=== PATIENT | female | born 1995 | race Caucasian/White ===

== ENCOUNTER 2018-01-30 06:00 | Inpatient (IN) | payer OTHER ==
[2018-01-30] MEDS ORDERED: CARBOPROST TROMETHAMINE 250 MCG/ML 1 ML AMP IM PRN (06:22)
[2018-01-30] MEDS ORDERED: TERBUTALINE 1 MG/ML VIAL SQ PRN (06:22)
[2018-01-30] MEDS ORDERED: OXYTOCIN 10 UNIT/ML 1 ML VIAL IM PRN (06:22)
[2018-01-30] MEDS ORDERED: LIDOCAINE 1% (PF) 10 MG/ML (30 ML SDV) SQ PRN (06:22)
[2018-01-30] MEDS ORDERED: METHYLERGONOVINE 0.2 MG/ML 1 ML AMP IM PRN (06:22)
[2018-01-30] MEDS ORDERED: OXYTOCIN 20 UNITS/1000 ML NS 1,000 ML IV SCH ×2 (06:30→11:45)
[2018-01-30] MEDS: LACTATED RINGERS 1,000 ML IV SCH ×2 (06:32→09:23)
[2018-01-30 06:43] LABS: Basophils # (A) 0.1 k/uL (0-0.2); Basophils % (A) 0 %; Eosinophils # (A) 0.2 k/uL (0-0.7); Eosinophils % (A) 1 %; HCT 35.1 % (34.0-46.0); HGB 12.3 gm/dL (11.4-16.0); Lymphocytes # (A) 3.3 k/uL (1.0-4.8); Lymphocytes % (A) 19 %; MCH 29.4 pg (25.0-35.0); MCHC 35.2 g/dL (31.0-37.0); MCV 83.5 fL (80.0-100.0); Mean Platelet Volume 7.8; Monocytes # (A) 0.7 k/uL (0-1.0); Monocytes % (A) 4 %; Neutrophils # (A) 12.7 k/uL (1.3-7.7); Neutrophils % (A) 74 %; Platelet Count 311 k/uL (150-450); WBC 17.1 k/uL (3.8-10.6)
[2018-01-30 07:48] VITALS: BMI 30.6
[2018-01-30] MEDS ORDERED: BUPIVACAINE (PF) 0.25% 30 ML VIAL ONE (09:07)
[2018-01-30] MEDS ORDERED: fentaNYL (PF) 50 MCG/ML 5 ML AMP ONE (09:07)
[2018-01-30] MEDS ORDERED: SODIUM CHLORIDE 0.9% 100 ML BAG ONE (09:07)
[2018-01-30] MEDS ORDERED: LANOLIN CREAM 5 GM TUBE TOPICAL PRN (11:45)
[2018-01-30] MEDS ORDERED: diphenhydrAMINE 50 MG/ML 1 ML VIAL IVP PRN ×2 (11:45)
[2018-01-30] MEDS ORDERED: diphenhydrAMINE 50 MG CAP PO PRN (11:45)
[2018-01-30] MEDS ORDERED: ACETAMINOPHEN TAB 325 MG TAB PO PRN (11:45)
[2018-01-30] MEDS ORDERED: SIMETHICONE 80 MG CHEWABLE PO PRN (11:45)
[2018-01-30] MEDS ORDERED: BENZOCAINE/MENTHOL SPRAY 1 GM/SPRAY AEROSOL TOPICAL PRN (11:45)
[2018-01-30] MEDS ORDERED: WITCH HAZEL 1 EACH MED..PAD TOPICAL PRN (11:45)
[2018-01-30] MEDS ORDERED: diphenhydrAMINE 25 MG CAP PO PRN (11:45)
[2018-01-30] MEDS ORDERED: HYDROCORTISONE 2.5% RECTAL CREAM 30 GM TUBE RECTAL PRN (11:45)
[2018-01-30] MEDS ORDERED: ZOLPIDEM 5 MG TAB PO PRN (11:45)
[2018-01-30] MEDS: IBUPROFEN 600 MG TAB PO PRN ×2 (12:56→23:29)
--- NOTE | 2018-01-30 17:35 | P.HPOB ---
History of Present Illness H&P Date: 01/30/18 Chief Complaint: Intrauterine at term: Active labor This year is a 23-year-old at 39 weeks gestation who originally arrives for induction. However on exam she was dilated 7 cm nilson every 2-3 minutes and it appears spontaneous rupture membranes did occur. Her course otherwise this point has been unremarkable and she was feeling well at this time. Her pertinent labs did include A+ blood type Rh antibody was negative, rubella immune, hepatitis B surface antigen as well as RPR and GBS were all negative. On physical exam vital signs are stable and afebrile. Heart regular, lungs clear, extremities without pain. Osteopathic exam is unremarkable. heart tones in the 1 teens to 120s and are reactive. Assessment intrauterine at term. Plan expect spontaneous vaginal delivery and plans for epidural for analgesia. May need Pitocin for augmentation. Past Medical History Past Medical History: No Reported History History of Any Multi-Drug Resistant Organisms: None Reported Past Surgical History: No Surgical Hx Reported Past Anesthesia/Blood Transfusion Reactions: No Reported Reaction Past Psychological History: No Psychological Hx Reported Smoking Status: Current every day smoker Past Alcohol Use History: None Reported Past Drug Use History: None Reported - Past Family History Mother Family Medical History: No Reported History Medications and Allergies Home Medications Medication Instructions Recorded Confirmed Type RX: Pnv,Calcium 72/Iron/Folic Acid 1 tab PO DAILY 01/30/18 01/30/18 History [ Plus Tablet] Allergies Allergy/AdvReac Type Severity Reaction Status Date / Time No Known Allergies Allergy Verified 01/30/18 06:22 Exam Osteopathic Statement: *. No significant issues noted on an osteopathic structural exam other than those noted in the History and Physical/Consult. - Vital Signs Vital signs: Vital Signs Temp Pulse Resp BP 01/30/18 15:54 98.0 F 75 16 119/63 01/30/18 13:28 98.2 F 85 16 101/56 01/30/18 12:58 98.3 F 84 16 111/58 01/30/18 12:28 98.2 F 82 16 112/56 01/30/18 12:13 91 16 118/53 01/30/18 11:58 94 16 121/71 01/30/18 11:43 83 16 117/69 01/30/18 11:28 98.0 F 93 16 116/57 01/30/18 07:42 97.2 F L 109 H 16 125/74 Intake and Output 01/30/18 01/30/18 01/30/18 06:59 14:59 22:59 Intake Total 16.7 Balance 16.7 Intake: Intake, IV Titration 16.7 Amount Oxytocin 20 Units/1000 ml 16.7 Ns 1,000 ml @ 1 MILLIUNIT/MIN 3 mls/hr IV .Q24H DEVAUGHN Rx#:[id number] Other: # Voids 1 1 Weight 83.461 kg 83.461 kg Results Result Diagrams: 01/30/18 06:33 Abnormal Lab Results - Last 24 Hours (Table) 01/30/18 Range/Units 06:33 WBC 17.1 H (3.8-10.6) k/uL Neutrophils # 12.7 H (1.3-7.7) k/uL
--- NOTE | 2018-01-30 17:38 | P.PROBDLV ---
Vaginal Delivery Note - . Vaginal Delivery Note: Patient progressed complete and pushing with spontaneous vaginal delivery of a viable female over a third-degree perineal laceration. Should be noted that heart tones during the pushing process were dropping from baseline of approximately 110 down into the 70s to 80s. There was recovery in less than a minute with each contraction. And consideration for vacuum assistance was made but ultimately she made good descent and progress from +2 station to the peritoneum. Once head was delivered nuchal cord 1 was reduced without difficulty. Anterior shoulder was unable to easily be cleared from under the pubic symphysis due to maternal effort and pain. Therefore I did reach into the posterior vagina and while grasping underneath the posterior axilla with the baby delivered from left occiput anterior position did rotate the baby in a clockwise motion which allowed the anterior shoulder to clear from underneath pubic synthesis and the baby was easily delivered from that point forward. Mouth and nares were then bulb suctioned and baby was placed on mother's abdomen where the umbilical cord was clamped and cut in usual fashion for a 20 seconds pulsation. Nursery personnel was present to assume care. Placenta was then delivered intact and Pitocin was added to the IV. Inspection of perineum revealed a third-degree laceration. Initially I did do a rectal exam to verify no fourth degree extension. Then changed my gloves and first using 3-0 Vicryl placed a layer deep in the subcuticular to help close over the external anal sphincter which remained intact. Once this was accomplished the remainder of the laceration was repaired in a second layer in usual fashion once this was concluded I did do another rectal exam with good tone noted. scores were 8 and 9 at one and 5 minutes respectively and the weight was 7 lbs. 1 oz. Both mother and baby are now stable following delivery.
[2018-01-30] MEDS: SENNOSIDES-DOCUSATE SODIUM 1 EACH TAB PO SCH (22:00)
[2018-01-31] MEDS: SENNOSIDES-DOCUSATE SODIUM 1 EACH TAB PO SCH (08:00)
[2018-01-31 08:36] LABS: Basophils # (A) 0.1 k/uL (0-0.2); Basophils % (A) 0 %; Eosinophils # (A) 0.1 k/uL (0-0.7); Eosinophils % (A) 1 %; HCT 30.6 % (34.0-46.0); HGB 10.5 gm/dL (11.4-16.0); Lymphocytes # (A) 3.6 k/uL (1.0-4.8); Lymphocytes % (A) 25 %; MCH 29.4 pg (25.0-35.0); MCHC 34.5 g/dL (31.0-37.0); MCV 85.3 fL (80.0-100.0); Mean Platelet Volume 7.8; Monocytes # (A) 0.8 k/uL (0-1.0); Monocytes % (A) 5 %; Neutrophils # (A) 9.7 k/uL (1.3-7.7); Neutrophils % (A) 67 %; Platelet Count 234 k/uL (150-450); RBC 3.59 m/uL (3.80-5.40); RDW 14.2 % (11.5-15.5); WBC 14.5 k/uL (3.8-10.6)
--- NOTE | 2018-01-31 09:02 | P.DS ---
Providers Date of admission: 01/30/18 06:17 Expected date of discharge: 01/31/18 Attending physician: Deacon Mackenzie Primary care physician: [facility] Course: Serum is doing very well day 1. She is involuting, voiding, and she is tolerating her diet. She voices no complaints. Vital signs are stable and afebrile. Heart regular, lungs clear, extremities without pain. Abdomen is soft uterus is firm below the umbilicus and lochia is reported be light. She will plan to use Colace or some other gentle stool softener for next few days with a third-degree perineal laceration. She will also ice the area today and tomorrow and then likely switched warm compresses following that. Discharge instructions were thoroughly reviewed with the patient and all questions are answered for her at this time. She has a prescription for Motrin and Tylenol No. 3 provided due to her third-degree laceration. Assessment day 1. Plan discharged home follow me in 6 weeks. Patient Condition at Discharge: Good Plan - Discharge Summary New Discharge Prescriptions: New Acetaminophen-Codeine 300-30mg [Tylenol #3] 1 tab PO Q4H PRN #30 tablet PRN Reason: Pain Ibuprofen [Motrin] 600 mg PO Q6HR PRN #30 tab PRN Reason: Pain No Action Pnv,Calcium 72/Iron/Folic Acid [ Plus Tablet] 1 tab PO DAILY Discharge Medication List Pnv,Calcium 72/Iron/Folic Acid [ Plus Tablet] 1 tab PO DAILY 01/30/18 [ History] Acetaminophen-Codeine 300-30mg [Tylenol #3] 1 tab PO Q4H PRN #30 tablet [Rx] Ibuprofen [Motrin] 600 mg PO Q6HR PRN #30 tab 01/31/18 [Rx] Follow up Appointment(s)/Referral(s): Deacon Mackenzie DO [Doctor of Osteopathic Medicine] - 6 Weeks Activity/Diet/Wound Care/Special Instructions: No heavy lifting, limit stairs and driving, and pelvic rest. If any high temperatures, heavy bleeding, or severe pain call my office Discharge Disposition: HOME SELF-CARE
[2018-01-31 15:48] VITALS: BP 114/60; PULSE 72; RESP 18; TEMP 98.3
== END 2018-01-31 16:30 | disposition home or self-care (01) | DRG 775 ==
LOC: 4FBP 06:17
PROVIDERS: ADMIT Obstetrics & Gynecology; ATTEND Obstetrics & Gynecology
PROC: 0DQR0ZZ Repair Anal Sphincter, Open Approach (ICD-10-PCS; principal; 2018-01-30)
PROC: 00HU33Z Insertion of Infusion Device into Spinal Canal, Percutaneous Approach (ICD-10-PCS; principal; 2018-01-30)
PROC: 3E0R3NZ Introduction of Analgesics, Hypnotics, Sedatives into Spinal Canal, Percutaneous Approach (ICD-10-PCS; principal; 2018-01-30)
PROC: 10E0XZZ Delivery of Products of Conception, External Approach (ICD-10-PCS; principal; 2018-01-30)
DX: O69.81X0 Labor and delivery complicated by cord around neck, without compression, not applicable or unspecified (principal); O70.20 Third degree perineal laceration during delivery, unspecified; F17.200 Nicotine dependence, unspecified, uncomplicated; Z37.0 Single live birth; O99.334 Smoking (tobacco) complicating childbirth; Z3A.39 39 weeks gestation of pregnancy; O76 Abnormality in fetal heart rate and rhythm complicating labor and delivery
CPT/HCPCS: 85025; 88307

== ENCOUNTER 2020-10-03 22:44 | Observation (INO) | payer OTHER ==
[2020-10-03] MEDS ORDERED: SODIUM CHLORIDE 0.9% 1,000 ML IV STA ×2 (23:03)
[2020-10-03] MEDS ORDERED: SODIUM CHLORIDE 0.9% 1,000 ML with MVI, ADULT NO.4 WITH VIT K 10 ML, THIAMINE 100 MG, F... IV ONE ×4 (23:04)
--- NOTE | 2020-10-03 23:14 | ED ---
General Adult HPI - General Chief complaint: Seizure Stated complaint: Seizures Time Seen by Provider: 10/03/20 22:51 Source: patient, RN notes reviewed, old records reviewed Mode of arrival: ambulatory Limitations: no limitations - History of Present Illness Initial comments: Patient instructed for old female with a history of daily alcohol abuse. She presents emergency department today with 3 reported seizure episodes. Patient reports that there she was laying in bed is occurred. These were witnessed by her boyfriend who does suffer from epilepsy. Patient's breath boyfriend reports that he turned her on her side and hold her during this time. He thought she should just leave them off. After the third episode this evening at 9 PM he decided to bring her to the ER. Patient's reports that she does have a positive family history for seizure disorder. She reports that she did bite her tongue. Patient reports that she has had no history of seizures before. She reports did not drink alcohol today. Patient states that she has had a headache and complains of nausea and vomiting prior to arrival. Patient reports that she is not last menstrual period was 2 weeks ago. Denies any other significant past medical history. - Related Data Home Medications Medication Instructions Recorded Confirmed No Known Home Medications 10/04/20 10/04/20 Allergies Allergy/AdvReac Type Severity Reaction Status Date / Time No Known Allergies Allergy Verified 10/04/20 00:04 Review of Systems ROS Statement: Those systems with pertinent positive or pertinent negative responses have been documented in the HPI. ROS Other: All systems not noted in ROS Statement are negative. Past Medical History Past Medical History: No Reported History History of Any Multi-Drug Resistant Organisms: None Reported Past Surgical History: Adenoidectomy, Tonsillectomy Past Anesthesia/Blood Transfusion Reactions: No Reported Reaction Past Psychological History: No Psychological Hx Reported Smoking Status: Never smoker Past Alcohol Use History: Daily Past Drug Use History: Marijuana - Past Family History Mother Family Medical History: No Reported History General Exam - General Exam Comments Initial Comments: 25-year-old female. No distress. Limitations: no limitations General appearance: alert, in no apparent distress Head exam: Present: atraumatic, normocephalic, normal inspection Eye exam: Present: normal appearance, PERRL, EOMI. Absent: scleral icterus, conjunctival injection, periorbital swelling ENT exam: Present: normal exam, mucous membranes moist, other (Swelling and bruising over tongue. ) Neck exam: Present: normal inspection. Absent: tenderness, meningismus, lymphadenopathy Respiratory exam: Present: normal lung sounds bilaterally. Absent: respiratory distress, wheezes, rales, rhonchi, stridor Cardiovascular Exam: Present: regular rate GI/Abdominal exam: Present: soft, normal bowel sounds. Absent: distended, tenderness, guarding, rebound, rigid Extremities exam: Present: normal inspection, full ROM, normal capillary refill. Absent: tenderness, pedal edema, joint swelling, calf tenderness Back exam: Present: normal inspection Neurological exam: Present: alert, oriented X3, CN II-XII intact Psychiatric exam: Present: normal affect, normal mood Skin exam: Present: warm, dry, intact, normal color. Absent: rash Course Vital Signs 10/03/20 10/03/20 22:46 23:45 Temperature 97.9 F Pulse Rate 93 96 Respiratory 18 19 Rate Blood Pressure 125/86 111/75 O2 Sat by Pulse 98 98 Oximetry Medical Decision Making - Medical Decision Making 25-year-old female presents emergency times a day with new onset of seizures. She had 3 separate tonic-clonic seizure episodes today. These were witnessed by her boyfriend. Each lasting a minute or 2 minutes. Patient does have evidence of biting her tongue. Patient does report she is a daily drinker however doesn't appear to be going through withdrawals at this time no signs of DTs. Patient was given IV fluids and lab work obtained. She does have evidence of leukocytosis. Urinalysis initial superadded white blood cell. Urine culture be completed. She just feels generally fatigued. She did mention that she had some discomfort in her right rib area that she believes is related to body shaking and possibly hitting it during her seizure. Chest x-ray was reviewed negative for acute process. The brain was reviewed and negative for acute process. Patient states case was discussed with Dr. Yusuf, concern for multiple seizures today would like to admit the Patient for observation and neurology consult. - Lab Data Result diagrams: 10/03/20 23:11 10/03/20 23:11 Lab Results 10/03/20 10/03/20 10/03/20 Range/Units 23:11 23:11 23:11 WBC 15.0 H (3.8-10.6) k/uL RBC 6.38 H (3.80-5.40) m/uL Hgb 16.0 (11.4-16.0) gm/dL Hct 52.1 H (34.0-46.0) % MCV 81.7 (80.0-100.0) fL MCH 25.1 (25.0-35.0) pg MCHC 30.7 L (31.0-37.0) g/dL RDW 16.9 H (11.5-15.5) % Plt Count 237 (150-450) k/uL MPV 7.2 Neutrophils % 91 % Lymphocytes % 5 % Monocytes % 3 % Eosinophils % 2 % Basophils % 0 % Neutrophils # 13.6 H (1.3-7.7) k/uL Lymphocytes # 0.7 L (1.0-4.8) k/uL Monocytes # 0.4 (0-1.0) k/uL Eosinophils # 0.3 (0-0.7) k/uL Basophils # 0.0 (0-0.2) k/uL Hypochromasia Slight Anisocytosis Slight Sodium 135 L (137-145) mmol/L Potassium 4.0 (3.5-5.1) mmol/L Chloride 102 (98-107) mmol/L Carbon Dioxide 23 (22-30) mmol/L Anion Gap 10 mmol/L BUN 6 L (7-17) mg/dL Creatinine 0.52 (0.52-1.04) mg/dL Est GFR (CKD-EPI)AfAm >90 (>60 ml/min/1.73 sqM) Est GFR (CKD-EPI)NonAf >90 (>60 ml/min/1.73 sqM) Glucose 151 H (74-99) mg/dL Calcium 9.4 (8.4-10.2) mg/dL Total Bilirubin 1.6 H (0.2-1.3) mg/dL AST 26 (14-36) U/L ALT 19 (4-34) U/L Alkaline Phosphatase 100 (38-126) U/L Total Protein 7.2 (6.3-8.2) g/dL Albumin 4.1 (3.5-5.0) g/dL Urine Color Yellow Urine Appearance Cloudy H (Clear) Urine pH 5.5 (5.0-8.0) Ur Specific [place] 1.025 (1.001-1.035) Urine Protein 1+ H (Negative) Urine Glucose (UA) Negative (Negative) Urine Ketones 2+ H (Negative) Urine Blood Trace H (Negative) Urine Nitrite Negative (Negative) Urine Bilirubin Negative (Negative) Urine Urobilinogen <2.0 (<2.0) mg/dL Ur Leukocyte Esterase Large H (Negative) Urine RBC 26 H (0-5) /hpf Urine WBC 15 H (0-5) /hpf Ur Squamous Epith Cells 22 H (0-4) /hpf Hyaline Casts 3 H (0-2) /lpf Urine Mucus Many H (None) /hpf Urine HCG, Qual (Not Detectd) Urine Opiates Screen Not Detected (NotDetected) Ur Oxycodone Screen Not Detected (NotDetected) Urine Methadone Screen Not Detected (NotDetected) Ur Propoxyphene Screen Not Detected (NotDetected) Ur Barbiturates Screen Not Detected (NotDetected) U Tricyclic Antidepress Not Detected (NotDetected) Ur Phencyclidine Scrn Not Detected (NotDetected) Ur Amphetamines Screen Detected H (NotDetected) U Methamphetamines Scrn Not Detected (NotDetected) U Benzodiazepines Scrn Not Detected (NotDetected) Urine Cocaine Screen Not Detected (NotDetected) U Marijuana (THC) Screen Detected H (NotDetected) Serum Alcohol <10 mg/dL 10/04/20 Range/Units 00:33 WBC (3.8-10.6) k/uL RBC (3.80-5.40) m/uL Hgb (11.4-16.0) gm/dL Hct (34.0-46.0) % MCV (80.0-100.0) fL MCH (25.0-35.0) pg MCHC (31.0-37.0) g/dL RDW (11.5-15.5) % Plt Count (150-450) k/uL MPV Neutrophils % % Lymphocytes % % Monocytes % % Eosinophils % % Basophils % % Neutrophils # (1.3-7.7) k/uL Lymphocytes # (1.0-4.8) k/uL Monocytes # (0-1.0) k/uL Eosinophils # (0-0.7) k/uL Basophils # (0-0.2) k/uL Hypochromasia Anisocytosis Sodium (137-145) mmol/L Potassium (3.5-5.1) mmol/L Chloride (98-107) mmol/L Carbon Dioxide (22-30) mmol/L Anion Gap mmol/L BUN (7-17) mg/dL Creatinine (0.52-1.04) mg/dL Est GFR (CKD-EPI)AfAm (>60 ml/min/1.73 sqM) Est GFR (CKD-EPI)NonAf (>60 ml/min/1.73 sqM) Glucose (74-99) mg/dL Calcium (8.4-10.2) mg/dL Total Bilirubin (0.2-1.3) mg/dL AST (14-36) U/L ALT (4-34) U/L Alkaline Phosphatase (38-126) U/L Total Protein (6.3-8.2) g/dL Albumin (3.5-5.0) g/dL Urine Color Urine Appearance (Clear) Urine pH (5.0-8.0) Ur Specific [place] (1.001-1.035) Urine Protein (Negative) Urine Glucose (UA) (Negative) Urine Ketones (Negative) Urine Blood (Negative) Urine Nitrite (Negative) Urine Bilirubin (Negative) Urine Urobilinogen (<2.0) mg/dL Ur Leukocyte Esterase (Negative) Urine RBC (0-5) /hpf Urine WBC (0-5) /hpf Ur Squamous Epith Cells (0-4) /hpf Hyaline Casts (0-2) /lpf Urine Mucus (None) /hpf Urine HCG, Qual Not Detected (Not Detectd) Urine Opiates Screen (NotDetected) Ur Oxycodone Screen (NotDetected) Urine Methadone Screen (NotDetected) Ur Propoxyphene Screen (NotDetected) Ur Barbiturates Screen (NotDetected) U Tricyclic Antidepress (NotDetected) Ur Phencyclidine Scrn (NotDetected) Ur Amphetamines Screen (NotDetected) U Methamphetamines Scrn (NotDetected) U Benzodiazepines Scrn (NotDetected) Urine Cocaine Screen (NotDetected) U Marijuana (THC) Screen (NotDetected) Serum Alcohol mg/dL - Radiology Data Radiology results: report reviewed Normal unenhanced head CT scan. Chest x-ray was negative for acute pulmonary process. Disposition Clinical Impression: New onset seizure Disposition: ADMITTED IP TO THIS HOSP Condition: Good Is patient prescribed a controlled substance at d/c from ED?: No Referrals: Niko Calvillo MD [Primary Care Provider] - 1-2 days Time of Disposition: 01:26
--- NOTE | 2020-10-03 23:38 | CT ---
EXAMINATION TYPE: CT brain wo con DATE OF EXAM: 10/03/2020 COMPARISON: None HISTORY: seizure CT DLP: 1099.4 mGycm Automated exposure control for dose reduction was used. Ventricles have normal size. There is no mass effect nor midline shift. There is no sign of intracran ial hemorrhage. There is no evidence of cerebral edema. Calvarium is intact. Skull base is intact. IMPRESSION: Normal unenhanced head CT scan.
[2020-10-03 23:56] LABS: Anisocytosis Slight; Basophils % (A) 0 %; Eosinophils # (A) 0.3 k/uL (0-0.7); Eosinophils % (A) 2 %; HCT 52.1 % (34.0-46.0); Hypochromasia Slight; Lymphocytes # (A) 0.7 k/uL (1.0-4.8); Lymphocytes % (A) 5 %; MCH 25.1 pg (25.0-35.0); MCHC 30.7 g/dL (31.0-37.0); MCV 81.7 fL (80.0-100.0); Mean Platelet Volume 7.2; Monocytes # (A) 0.4 k/uL (0-1.0); Monocytes % (A) 3 %; Neutrophils # (A) 13.6 k/uL (1.3-7.7); Neutrophils % (A) 91 %; Platelet Count 237 k/uL (150-450); RBC 6.38 m/uL (3.80-5.40); RDW 16.9 % (11.5-15.5)
[2020-10-04 00:06] LABS: ALT 19 U/L (4-34); AST 26 U/L (14-36); African American GFR (CKD) >90 (>60 ml/min/1.73 sqM); Albumin 4.1 g/dL (3.5-5.0); Alcohol <10 mg/dL; Alkaline Phosphatase 100 U/L (38-126); Anion Gap 10 mmol/L; Blood Urea Nitrogen 6 mg/dL (7-17); Calcium 9.4 mg/dL (8.4-10.2); Carbon Dioxide 23 mmol/L (22-30); Chloride 102 mmol/L (98-107); Glucose 151 mg/dL (74-99); Non-African American GFR(CKD) >90 (>60 ml/min/1.73 sqM); Sodium 135 mmol/L (137-145); Total Bilirubin 1.6 mg/dL (0.2-1.3); Total Protein 7.2 g/dL (6.3-8.2)
[2020-10-04 00:12] LABS: Amphetamine Screen,Urine Detected (NotDetected); Barbiturate Screen,Urine Not Detected (NotDetected); Benzodiazepines Screen,Urine Not Detected (NotDetected); Cocaine Screen,Urine Not Detected (NotDetected); Methadone Screen, Urine Not Detected (NotDetected); Opiate Screen,Urine Not Detected (NotDetected); Oxycodone Screen, Urine Not Detected (NotDetected); Phencyclidine Screen,Urine Not Detected (NotDetected); Tricyclic Antidepressant,Urine Not Detected (NotDetected); Urn Cannabinoid Scrn Detected (NotDetected)
--- NOTE | 2020-10-04 00:16 | XR ---
EXAM: XR Chest, 2 Views CLINICAL HISTORY: ITS.REASON XR Reason: seizure, rib pain TECHNIQUE: Frontal and lateral views of the chest. COMPARISON: none available FINDINGS: Lungs: Unremarkable. No consolidation. Pleural space: Unremarkable. No pneumothorax. Heart: Unremarkable. No cardiomegaly. Mediastinum: Unremarkable. Bones/joints: Unremarkable. No displaced rib fractures identified. IMPRESSION: No acute pulmonary process.
[2020-10-04 00:25] LABS: Appearance,Urine Cloudy (Clear); Bilirubin,Urine Negative (Negative); Blood,Urine Trace (Negative); Color,Urine Yellow; Glucose,Urine (UA) Negative (Negative); Hyaline Casts,Urine 3 /lpf (0-2); Ketones,Urine 2+ (Negative); Leukocyte Esterase,Urine Large (Negative); Mucus,Urine Many /hpf; Nitrite,Urine Negative (Negative); PH, Urine 5.5 (5.0-8.0); Protein,Urine 1+ (Negative); RBC,Urine 26 /hpf (0-5); Specific Gravity,Urine 1.025 (1.001-1.035); Squamous Epithelial Cell,Urine 22 /hpf (0-4); Urobilinogen,Urine <2.0 mg/dL (<2.0); WBC,Urine 15 /hpf (0-5)
[2020-10-04] MEDS ORDERED: ACETAMINOPHEN TAB 325 MG TAB PO PRN (01:27)
[2020-10-04] MEDS ORDERED: NALOXONE 0.4 MG/ML 1 ML VIAL IV PRN (01:27)
[2020-10-04] MEDS ORDERED: IBUPROFEN 400 MG TAB PO PRN (01:27)
[2020-10-04] MEDS ORDERED: ONDANSETRON 4 MG/2 ML VIAL IVP PRN (01:27)
[2020-10-04] MEDS ORDERED: KETOROLAC 15 MG/ML 1 ML VIAL IVP PRN (01:27)
[2020-10-04] MEDS ORDERED: LORazepam 2 MG/ML INJ IV PRN ×4 (01:30→01:31)
[2020-10-04] MEDS ORDERED: THIAMINE 100 MG/ML 2 ML VIAL IM STA (01:31)
[2020-10-04] MEDS: SODIUM CHLORIDE 0.9% 1,000 ML IV SCH ×3 (03:11→19:39)
--- NOTE | 2020-10-04 09:18 | P.CNNES ---
History of Present Illness Consult date: 10/04/20 Requesting physician: Marian Oneill Reason for Consult: new onset seizure History of Present Illness: This 25-year-old right-handed woman with history of alcohol abuse, tobacco use who presented to the Emergency department on 10/03/2020 at around 22:44 for new onset seizure. The patient stated that on 10/03/2020 around 9:00 she was sleeping and she had a seizure that was witnessed by her boyfriend. She was told that the she started having extensor posturing of the bilateral upper extremity and that shaking of the lower extremity and was unresponsive during the episode. The episode lasted for 1 minute. And she had tongue bite on the lateral side. She did have any urinary bowel incontinence. It took her a co uple minutes to regain consciousness. Then later at 9 PM that same day she had that 2 seizures [id number] also lasting for about a minute. With the procedure she had a tongue bite patient have any urinary or bowel incontinence. Again she does not recall the episodes and these were witnessed by her boyfriend. As a result her boyfriend brought to the emergency department. She drinks 1 pint of liquor daily. Patient stated that her last drink was this Sunday (10/02/20) around 3 AM. She said that she drinks heavily for the last 1 year. Prior to that she would drink heavily once a week. She denies any history of seizures prior to these episodes. She denies of any febrile seizures as well. Regarding her history she said that she was born at 6 months since the her mom's water broke and that she was a product of but there is no complication. She did have any meningitis or encephalitis. She does have the family history of seizures, her father had seizures in his 40s and generalized tonic-clonic seizures. She also smokes half a pack to 1 pack of cigarettes daily for the past 10 years. She stated that she has history of attention deficit disorder and she is on Adderall 30 mg and she takes it sporadically she gets a prescription from her primary care physician. She denies of fever recently, night sweats, focal weakness or visual disturbance. She denies or urinary frequency or hesitancy. She denies of pain on urination. Work-up in the hospital consisted of: CT head: Is reported as normal unenhanced head CT scan. I personally reviewed the CT of the head and I agree with the report finding. EKG: Normal sinus rhythm. Nonspecific T wave abnormality. Ventricular rate 85. White blood cell 15.0. Serum glucose 151. Urinalysis: Urine appears cloudy, urine ketones 2 positive, urine nitrate was negative, leukocyte esterase was large and white blood cell is 15. Urine drug screen is positive for amphetamine and for marijuana. Serum alcohol level is less than 10. Review of Systems Review of system: The 12 point system was reviewed and apparent positive and negative per HPI. Past Medical History Past Medical History: No Reported History Additional Past Medical History / Comment(s): patients father and uncle have a history of seizures, uncle at 26 years old. History of Any Multi-Drug Resistant Organisms: None Reported Past Surgical History: Adenoidectomy, Tonsillectomy Past Anesthesia/Blood Transfusion Reactions: No Reported Reaction Past Psychological History: No Psychological Hx Reported Smoking Status: Current every day smoker Past Alcohol Use History: Daily Past Drug Use History: Marijuana - Past Family History Mother Family Medical History: No Reported History Medications and Allergies Home Medications Medication Instructions Recorded Confirmed Type Thiamine [Vitamin B-1] 100 mg PO DAILY #30 tablet 10/04/20 Rx levETIRAcetam [Keppra] 500 mg PO Q12HR #60 tab 10/04/20 Rx Allergies Allergy/AdvReac Type Severity Reaction Status Date / Time No Known Allergies Allergy Verified 10/04/20 00:04 Physical Examination - Vital Signs Vital Signs: Vital Signs Temp Pulse Pulse Resp BP BP Pulse Ox 10/04/20 02:51 99.0 F 94 16 111/68 98 10/04/20 02:10 98.2 F 82 19 120/78 98 10/04/20 02:00 98.2 F 90 18 120/78 97 10/04/20 01:00 98.2 F 85 18 120/71 98 10/03/20 23:45 96 19 111/75 98 10/03/20 22:46 97.9 F 93 18 125/86 98 Intake and Output 10/03/20 10/04/20 10/04/20 22:59 06:59 14:59 Other: # Voids 2 Weight 81.647 kg 81.647 kg GENERAL: The patient is lying in bed and is not in acute distress. CHEST: The heart rate is regular rate rhythm. No murmurs to auscultation. LUNG: Clear to auscultation bilaterally no wheezing noted throughout. Not labored breathing. ABDOMEN/GI: Bowel sounds present in all 4 quadrants. No tenderness to palpation throughout. NEUROLOGICAL: Higher mental function: The patient is awake, alert, oriented to self, place and time. Patient is following commands. No aphasia and no neglect. Cranial nerves: The pupils are round, equal and reactive to light and acc ommodation. Visual johnson are full to confrontation throughout. Extraocular movement is intact no nystagmus is noted. Facial sensation is normal to touch throughout. The facial strength is normal throughout. Hearing is normal bilaterally to hand rub. Tongue is midline and moved [id number] without any difficulty. she does have tongue bite abreu on bilateral lateral sides. No dysarthria is noted. Shoulder shrug is normal bilaterally. Motor: The strength is 5 over 5 throughout. Normal tone and bulk. Cerebellum: Normal finger to nose heel to pickett bilaterally. Sensation: Sensation is normal to touch throughout. Reflexes (right/left): 2+ throughout. Plantars are downgoing bilaterally. Results Calcium 9.4. AST 26. ALT 19. - Laboratory Findings CBC and BMP: 10/03/20 23:11 10/03/20 23:11 Abnormal Lab Findings: Abnormal Labs 10/03/20 10/03/20 10/03/20 23:11 23:11 23:11 WBC 15.0 H RBC 6.38 H Hct 52.1 H MCHC 30.7 L RDW 16.9 H Neutrophils # 13.6 H Lymphocytes # 0.7 L Sodium 135 L BUN 6 L Glucose 151 H Total Bilirubin 1.6 H Urine Appearance Cloudy H Urine Protein 1+ H Urine Ketones 2+ H Urine Blood Trace H Ur Leukocyte Esterase Large H Urine RBC 26 H Urine WBC 15 H Ur Squamous Epith Cells 22 H Hyaline Casts 3 H Urine Mucus Many H Ur Amphetamines Screen Detected H U Marijuana (THC) Screen Detected H Assessment and Plan Assessment: This is a 25-year-old woman who presented emergency department on 10/03/2020 at nighttime because of 3 episode of seizure lasting 1 minute with tongue bites. She does not have any history of seizures prior to that. There is a family history of seizure, father. She is a product of 6 month gestation and was a C- section but there is no complication. New onset seizures is likely from alcohol withdrawal and urinary tract infection Alcohol use Asytomatic Urinary tract infection History of attention deficit disorder (ADD) Urine drug screen is positive for amphetamine and marijuana Plan: Ordered urgent EEG. Ordered MRI of the brain especially with a significant family history of seizures. I will not start the patient on an antiepileptic drug unless there is epidural epileptiform discharges or seizure on the EEG or any significant abnormality on MRI as cause of seizure. But if the patient continues to have these episodes then I'll consider starting her on antiepileptic drugs. Patient was given thiamine 100 mg IM once in the ED. Currently the patient is IV normal saline with multiple vitamins including thiamine folic acid. Ordered vitamin B12 and folate especially with a significant alcohol use. Patient is on [facility] protocol and will defer management to primary team. Patient was counseled on alcohol cessation. Shows counseled on tobacco cessation. She was notified as a result of her seizures she cannot drive for 6 month according to the [facility] [place] law until she is seizure free. Patient was also notified that he is to avoid the [place], heavy machinery or swimming unassisted as a result of her seizures. Patient was notified that she needs to follow-up with a neurologist as an outpatient. We'll defer the urinary tract infection to the primary team. Thank you for the consultation. Update: Routine EEG was normal. MRI Brain reported as normal. I notified the patient of the EEG and MRI of the brain finding and notified her that the my suspicion that this was possibly the seizure was provoked likely from alcohol withdrawal but could not rule out unprovoked seizure especially with family history of seizure. Patient stated that she was to be on an antiepileptic drug at as a safety measure. Therefore I ordered Keppra IV 1500 mg loading dose then we'll start the patient on Keppra 500 mg twice a day scheduled. I notified the patient that I would like her to stay 1 more day to make sure that she has no further seizures but that she is adamant of leaving today's so therefore she can leave only after 10 PM tonight if no further seizures. She was counseled multiple times on the stopping the alcohol and to follow up with a neurologist regarding her seizure. Duncan Currie M.D. Neuro-hospitalist Time with Patient: Greater than 30
--- NOTE | 2020-10-04 11:08 | MR ---
EXAMINATION TYPE: MR brain wo con DATE OF EXAM: 10/04/2020 COMPARISON: CT brain 10/03/2020 HISTORY: Seizure CONTRAST: Performed utilizing 0 mL intravenous Gadavist gadolinium contrast. TECHNIQUE: Multiplanar, multiecho imaging on a 3.0 Carmina magnet is performed through the brain. Stud y is performed within 24 hours of arrival to the hospital. The craniovertebral junction is normal. The pituitary is normal. Diffusion-weighted imaging is performed. No abnormal hyperintensity is present to suggest an acute i ntracranial infarct or acute ischemic change. There are scattered punctate areas of hyperintensity on T2 and Inversion Recovery weighted sequences which are non-specific but can be related to microvascular ischemic changes. Ventricles and sulci are appropriate for the patient age. Temporal lobes appear symmetrical. IMPRESSIONS: 1. Normal noncontrast MRI brain
--- NOTE | 2020-10-04 13:37 | P.HPIM ---
History of Present Illness 25-year-old cousin female came in after she had seizures. Patient does have history of alcohol abuse drinks about 1 pint of hard liquor every single day last drink was on Sunday started having seizures at 10 PM yesterday 3 episode s, lasted for 1 minute became unresponsive with the urinary and bowel incontinence. Patient is willing to go to drinking alcohol. Patient was evaluated by neurology. Patient had an EEG does his of which are pending at this time. CT of the head did not show any significant abnormality. Serum alc ohol level was less than 10 Review of Systems REVIEW OF SYSTEMS: CONSTITUTIONAL: No fever, no malaise, no fatigue. HEENT: No recent visual problems or hearing problems. Denied any sore throat. CARDIOVASCULAR: No chest pain, orthopnea, PND, no palpitations, no syncope. PULMONARY: No shortness of breath, no cough, no hemoptysis. GASTROINTESTINAL: No diarrhea, no nausea, no vomiting, no abdominal pain. NEUROLOGICAL: No headaches, no weakness, no numbness. HEMATOLOGICAL: Denies any bleeding or petechiae. GENITOURINARY: Denies any burning micturition, frequency, or urgency. MUSCULOSKELETAL/RHEUMATOLOGICAL: Denies any joint pain, swelling, or any muscle pain. ENDOCRINE: Denies any polyuria or polydipsia. The rest of the 14-point review of systems is negative. Past Medical History Past Medical History: No Reported History Additional Past Medical History / Comment(s): patients father and uncle have a history of seizures, uncle at 26 years old. History of Any Multi-Drug Resistant Organisms: None Reported Past Surgical History: Adenoidectomy, Tonsillectomy Past Anesthesia/Blood Transfusion Reactions: No Reported Reaction Past Psychological History: No Psychological Hx Reported Smoking Status: Current every day smoker Past Alcohol Use History: Daily Past Drug Use History: Marijuana - Past Family History Mother Family Medical History: No Reported History Medications and Allergies Home Medications Medication Instructions Recorded Confirmed Type No Known Home Medications 10/04/20 10/04/20 History Allergies Allergy/AdvReac Type Severity Reaction Status Date / Time No Known Allergies Allergy Verified 10/04/20 00:04 Physical Exam Vitals: Vital Signs Temp Pulse Pulse Resp BP BP Pulse Ox 10/04/20 09:16 95 10/04/20 02:51 99.0 F 94 16 111/68 98 10/04/20 02:10 98.2 F 82 19 120/78 98 10/04/20 02:00 98.2 F 90 18 120/78 97 10/04/20 01:00 98.2 F 85 18 120/71 98 10/03/20 23:45 96 19 111/75 98 10/03/20 22:46 97.9 F 93 18 125/86 98 Intake and Output 10/03/20 10/04/20 10/04/20 22:59 06:59 14:59 Other: Voiding Method Toilet # Voids 2 Weight 81.647 kg 81.647 kg PHYSICAL EXAMINATION: GENERAL: The patient is alert and oriented x3, not in any acute distress. Well developed, well nourished. HEENT: Pupils are round and equally reacting to light. EOMI. No scleral icterus. No conjunctival pallor. Normocephalic, atraumatic. No pharyngeal erythema. No thyromegaly. CARDIOVASCULAR: S1 and S2 present. No murmurs, rubs, or gallops. PULMONARY: Chest is clear to auscultation, no wheezing or crackles. ABDOMEN: Soft, nontender, nondistended, normoactive bowel sounds. No palpable organomegaly. MUSCULOSKELETAL: No joint swelling or deformity. EXTREMITIES: No cyanosis, clubbing, or pedal edema. NEUROLOGICAL: Gross neurological examination did not reveal any focal deficits. SKIN: No rashes. Results CBC & Chem 7: 10/03/20 23:11 10/03/20 23:11 Labs: Abnormal Lab Results - Last 24 Hours (Table) 10/03/20 10/03/20 10/03/20 Range/Units 23:11 23:11 23:11 WBC 15.0 H (3.8-10.6) k/uL RBC 6.38 H (3.80-5.40) m/uL Hct 52.1 H (34.0-46.0) % MCHC 30.7 L (31.0-37.0) g/dL RDW 16.9 H (11.5-15.5) % Neutrophils # 13.6 H (1.3-7.7) k/uL Lymphocytes # 0.7 L (1.0-4.8) k/uL Sodium 135 L (137-145) mmol/L BUN 6 L (7-17) mg/dL Glucose 151 H (74-99) mg/dL Total Bilirubin 1.6 H (0.2-1.3) mg/dL Urine Appearance Cloudy H (Clear) Urine Protein 1+ H (Negative) Urine Ketones 2+ H (Negative) Urine Blood Trace H (Negative) Ur Leukocyte Esterase Large H (Negative) Urine RBC 26 H (0-5) /hpf Urine WBC 15 H (0-5) /hpf Ur Squamous Epith Cells 22 H (0-4) /hpf Hyaline Casts 3 H (0-2) /lpf Urine Mucus Many H (None) /hpf Ur Amphetamines Screen Detected H (NotDetected) U Marijuana (THC) Screen Detected H (NotDetected) Thrombosis Risk Factor Assmnt - Choose All That Apply Any of the Below Risk Factors Present?: Yes Each Factor Represents 1 point: Obesity (BMI >25) Other Risk Factors: No Thrombosis Risk Factor Assessment Total Risk Factor Score: 1 Thrombosis Risk Factor Assessment Level: Low Risk Assessment and Plan Plan: -Alcohol withdrawal seizures: Patient will continued on seizure precautions, Ativan CIWA protocol. Patient will be monitored overnight today patient is presently not having any withdrawal symptoms at this time. Patient had an MRI of the brain which did not show any significant abnormality. EEG is pending -Delirium tremens management as mentioned above patient will be continued on thiamine multivitamin supplementation -Alcohol abuse: Counseling was provided -Nicotine use: Counseling was provided -DVT prophylaxis early ambulation -Leukocytosis reactive secondary to seizure without any evidence of infection -Asymptomatic bacteriuria/contaminated urine sample will not require any antibiotics at this time
[2020-10-04] MEDS ORDERED: levETIRAcetam IV 1,500 MG in SALINE 1 100ML.BAG IVPB STA (17:13)
--- NOTE | 2020-10-04 17:22 | EEG ---
ELECTROENCEPHALOGRAM REPORT DATE OF SERVICE: 10/04/2020 CLINICAL HISTORY: This is a 25-year-old woman with history of alcohol use who presents to the emergency department because of 3 seizure-like episodes. This video EEG was obtained to evaluate for seizure and epileptiform activity. RELEVANT MEDICATION: The patient is not on any antiepileptic drugs. EEG TYPE: EEG type is a routine 21 channel EEG was performed with video using the 81302 electrode placement system. DESCRIPTION: Wakefulness, drowsiness and stage 2 sleep are obtained. During wakefulness, there is a posterior dominant rhythm of low to moderate voltage, reactive, well modulated, of 9-10 hertz activity over bilateral hemisphere. During drowsiness there is slowing and attenuation of the background activity. During stage 2 sleep, there are sleep spindles and K complexes. Interictal and ictal are none. ACTIVATION PROCEDURE: Photic stimulation did evoke a posterior driving response over bilateral hemisphere. at multiple flash frequencies with predominantly low flash frequencies. Hyperventilation was performed but no epileptiform activity or seizures seen over bilateral hemisphere. EEG DIAGNOSIS: This is a normal routine EEG. CLINICAL INTERPRETATION: This is a normal routine awake, drowsy, and asleep EEG. There are no focal slowing, epileptiform activity or seizure seen during this study. Clinical correlation is recommended. MMBOYDL / IJN: [id number] / MTDD
[2020-10-04] MEDS ORDERED: levETIRAcetam 500 MG TAB PO SCH (21:00)
[2020-10-04 21:25] VITALS: BP 124/77; PULSE 56; RESP 16; TEMP 98.2
--- NOTE | 2020-10-06 12:57 | P.DS ---
Providers Date of admission: 10/04/20 01:15 Expected date of discharge: 10/04/20 Attending physician: Wendy Horton Consults: 10/04/20 01:27 Consult Physician Stat Consulting Provider: Duncan Currie Consult Reason/Comments: new onset seizure Do you want consulting provider notified?: Yes Primary care physician: Niko Calvillo Hospital Course: Patient was monitored for about 36 hours and patient didn't have any withdrawals. Patient was cleared by neurology and patient wanted to go home and patient was subsequently discharged on Keppra as recommended by neurology. Please refer to my H&P for further details of hospitalization and course. Patient Condition at Discharge: Good Plan - Discharge Summary New Discharge Prescriptions: New levETIRAcetam [Keppra] 500 mg PO Q12HR #60 tab Thiamine [Vitamin B-1] 100 mg PO DAILY #30 tablet Discharge Medication List Thiamine [Vitamin B-1] 100 mg PO DAILY #30 tablet 10/04/20 [Rx] levETIRAcetam [Keppra] 500 mg PO Q12HR #60 tab 10/04/20 [Rx] Follow up Appointment(s)/Referral(s): She Lee NPC [Family Provider] - 3 Days Tasneem Giraldo MD [REFERRING] - 1 Week Patient Instructions/Handouts: Abuse of Alcohol (DC) Discharge Disposition: HOME SELF-CARE
== END 2020-10-04 23:00 | disposition home or self-care (01) ==
LOC: EC 22:44 → INTOOBSV 10-04 01:15 → 5NMEDONC 10-04 01:15 → UNDODISIN 10-04 23:00
PROVIDERS: ADMIT Hospitalist; ATTEND Hospitalist
DX: F10.131 Alcohol abuse with withdrawal delirium (principal); R56.9 Unspecified convulsions; R82.71 Bacteriuria; E66.9 Obesity, unspecified; Z68.29 Body mass index [BMI] 29.0-29.9, adult; F17.210 Nicotine dependence, cigarettes, uncomplicated; F98.8 Other specified behavioral and emotional disorders with onset usually occurring in childhood and adolescence; D72.829 Elevated white blood cell count, unspecified; Z79.899 Other long term (current) drug therapy; Z98.890 Other specified postprocedural states; Y90.0 Blood alcohol level of less than 20 mg/100 ml; Z82.0 Family history of epilepsy and other diseases of the nervous system
CPT/HCPCS: 96366 ×2; 96372; 96375; 96365; 99285; 36415; 95819; 93005; 82747; 80053; 82607; 83735; 85025; 81001; 81025; 80306; 71046; 70450; 70551; G0378; G0480; J3411; J1885; J1953; 80320